=== PATIENT | male | born 2000 | race Caucasian/White ===

== ENCOUNTER 2018-02-22 16:19 | Emergency (ER) | payer BC ==
[2018-02-22] MEDS ORDERED: Cephalexin CAP* 500 MG PO ONE (19:04)
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
[2018-02-22] MEDS ORDERED: Bacitracin OINTMENT* 0.5% 0.5 oz TUBE ONE (20:18)
[2018-02-22 20:19] VITALS: BP 120/57
--- NOTE | 2018-02-23 08:00 | RAD ---
Indication: Right knee pain 2 views of the right knee demonstrates no fracture or dislocation. No other bone or joint abnormality is identified. IMPRESSION: Unremarkable right knee. R0
== END 2018-02-22 20:18 | disposition home or self-care (01) ==
LOC: ED 16:19
DX: S81.011A Laceration without foreign body, right knee, initial encounter (principal); V18.4XXA Pedal cycle driver injured in noncollision transport accident in traffic accident, initial encounter; Y92.9 Unspecified place or not applicable
CPT/HCPCS: 12002; 99282; A9270-GY